=== PATIENT | male | born 1975 | race Caucasian/White ===

== ENCOUNTER 2022-01-12 17:21 | Emergency (ER) | payer MEDICAID ==
[~2022-01-12] VITALS: Ht 175.3 cm; Wt 74.8 kg
[2022-01-12 19:47] VITALS: BP 145/79
--- NOTE | 2022-01-12 19:47 | NUR ---
Patient discharged to home in stable condition. Written and verbal after care instructions given. Patient verbalizes understanding of instructions. Stressed follow up or return to ER for worsening s/s. Patient out of ER with crutches, no falls noted, no acute signs of distress, VSS, all belongings taken.
== END 2022-01-12 19:48 | disposition home or self-care (01) ==
LOC: ER 17:38
DX: S93.401A Sprain of unspecified ligament of right ankle, initial encounter (principal); W01.0XXA Fall on same level from slipping, tripping and stumbling without subsequent striking against object, initial encounter; Y92.89 Other specified places as the place of occurrence of the external cause; J45.909 Unspecified asthma, uncomplicated; R03.0 Elevated blood-pressure reading, without diagnosis of hypertension
CPT/HCPCS: 73610; A4663